=== PATIENT | female | born 1990 | race African-American/Black ===

== ENCOUNTER 2018-09-26 16:21 | Outpatient (CLI) | payer MEDICAID ==
[~2018-09-26] VITALS: Ht 160 cm; Wt 69.5 kg
== END 2018-09-26 19:52 | disposition home or self-care (01) ==
LOC: LDOP 16:21
PROVIDERS: ATTEND Obstetrics & Gynecology
DX: O26.899 Other specified pregnancy related conditions, unspecified trimester (principal); R10.9 Unspecified abdominal pain; Z3A.32 32 weeks gestation of pregnancy
CPT/HCPCS: 59025; 76805; 80307; 81001; 87086; 99201; J7120; G0463